=== PATIENT | female | born 1935 | race Caucasian/White ===

== ENCOUNTER → 2018-03-27 | Outpatient (CLI) | payer MEDICARE ==
[~2018-03-27] MED LIST: ALBIPROI; ALBU3IS; ALBU3IS INH; ALBU90OI; ALBU90OI INH; ALPR.25; ALPR.5 PO; AMOCLA875 PO; Amlodipine Bes2.5 MG PO; BUME1 PO; CEPH500; CHOLESTOFF; CITRACAL; ECOTRIN PO; ESTR1; FURO40; FURO40 PO; GABA100 PO; GABA300; HYDACE5 PO; HYDMOR2; IRBE150; IRBE150 PO; K-Dur20 MEQ PO; LANS15EC; LANS30EC PO; LOSA50 PO; MINO50; MONT10T; MULVITMINF PO; Mucinex600 MG PO; POTCHL20ER; POTCHL20ER PO; PRED5; PROACE100; Percocet 5-3251 EACH PO; QUIN325; RXPRED10; SPACE CHAMBER1 EACH MC; TRIAOI; VERA100; VIT C & E; Zovirax800 MG PO; [UNRECOGNIZED DRUG - OTHER]
== END | disposition home or self-care (01) ==
LOC: PLD 07:44 → LAB SHORT 07:44
DX: C44.41 Basal cell carcinoma of skin of scalp and neck (principal)
CPT/HCPCS: 88305

== ENCOUNTER → 2019-09-24 | Outpatient (CLI) | payer OTHER | END | disposition home or self-care (01) | LOC: PLD 08:16 → LAB SHORT 08:16 | DX: L82.1 Other seborrheic keratosis (principal) | CPT/HCPCS: 88305 ==

== ENCOUNTER → 2020-03-26 | Outpatient (CLI) | payer OTHER | END | disposition home or self-care (01) | LOC: LAB SHORT 14:20 → LAB 14:20 | DX: M54.5 Low back pain (principal); R30.0 Dysuria | CPT/HCPCS: 87086 ==

== ENCOUNTER → 2021-03-07 | Outpatient (CLI) | payer OTHER ==
[~2021-03-07] MED LIST changes: +ALPRAZOLAM0.5 M1 PO; +ASCO500 PO; +BISA5EC PO; +GUAI600T33 PO; +K-Dur 20 meq T20 MEQ PO; +OXYC5 PO; +TOCO1000 PO; +VITAMIN D5000 UNIT PO
== END | disposition home or self-care (01) ==
LOC: LAB SHORT 10:45 → LAB 10:45
DX: R30.0 Dysuria (principal)
CPT/HCPCS: 87086

== ENCOUNTER 2021-03-15 13:32 | Emergency (ER) | payer OTHER ==
[~2021-03-15] VITALS: Ht 162.6 cm; Wt 72.1 kg
[~2021-03-15 13:32] MED LIST changes: -ALPRAZOLAM0.5 M1 PO; -ASCO500 PO; -BISA5EC PO; -GUAI600T33 PO; -K-Dur 20 meq T20 MEQ PO; -OXYC5 PO; -TOCO1000 PO; -VITAMIN D5000 UNIT PO
[2021-03-15 14:13] LABS: BASOPHILS ABSOLUTE AUTO 0.06 K/mm3 (0.00-0.23); BASOPHILS PERCENT AUTO 1 % (0-2); EOSINOPHILS ABSOLUTE AUTO 0.07 K/mm3 (0.00-0.68); EOSINOPHILS PERCENT AUTO 1 % (0-6); Hematocrit 41.8 % (33.0-51.0); Hemoglobin 13.7 g/dL (11.5-16.0); IMMATURE GRAN ABSOLUTE AUTO 0.02 K/mm3 (0.00-0.10); IMMATURE GRAN PERCENT AUTO 0 % (0-1); LYMPHOCYTES ABSOLUTE AUTO 1.06 K/mm3 (0.84-5.20); LYMPHOCYTES PERCENT AUTO 13 % (21-46); MONOCYTES ABSOLUTE AUTO 0.77 K/mm3 (0.16-1.47); MONOCYTES PERCENT AUTO 10 % (4-13); Mean Corpuscular HGB 29.5 pg (26.0-34.0); Mean Corpuscular HGB Conc 32.8 g/dL (31.5-36.5); Mean Corpuscular Volume 90 fL (80-100); Mean Platelet Volume 8.8 fL (9.1-12.4); NEUTROPHILS ABSOLUTE AUTO 6.04 K/mm3 (1.96-9.15); NEUTROPHILS PERCENT AUTO 75 % (41-73); Platelet Count 193 K/mm3 (150-400); RDW Coefficient Variation 12.8 % (11.7-14.2); Red Blood Cell Count 4.64 M/mm3 (3.80-5.20); White Blood Cell Count 8.02 K/mm3 (4.00-11.30)
[2021-03-15 14:31] LABS: Alanine Aminotransfer (ALT/SGP 19 U/L (12-78); Albumin, Blood 3.5 g/dL (3.4-5.0); Albumin/Globulin Ratio 0.8 (0.8-1.8); Alk Phos 103 U/L (50-136); Anion Gap 4 mmol/L (6-16); Aspartate Aminotrans (AST/SGOT 21 U/L (12-37); Bilirubin, Total 0.4 mg/dL (0.1-1.0); Blood Urea Nitrogen 15 mg/dL (8-24); Bun/Creatinine Ratio 12.8 (12.0-20.0); CO2, Blood 33 mmol/L (21-32); Calcium, Blood 8.9 mg/dL (8.5-10.1); Chloride, Blood 100 mmol/L (98-108); Creatinine, Blood 1.17 mg/dL (0.40-1.00); Globulin, Blood 4.3 g/dL (2.2-4.0); Glomerular Filtration Rate 47 (60-); Glucose, Blood 102 mg/dL (70-99); Potassium, Blood 3.4 mmol/L (3.5-5.5); Sodium, Blood 137 mmol/L (136-145); Total Protein, Blood 7.8 g/dL (6.4-8.2); Troponin I <0.015 ng/mL (0.000-0.040)
[2021-03-15] MEDS ORDERED: K-Dur 20 meq T20 MEQ PO (14:34)
[2021-03-15] MEDS ORDERED: OXYC5 PO (14:34)
[2021-03-15] MEDS ORDERED: ALPRAZOLAM0.5 M1 PO (14:36)
== END 2021-03-15 15:34 | disposition home or self-care (01) ==
LOC: ER 13:32
PROVIDERS: Emergency Medicine
DX: M54.5 Low back pain (principal); R06.00 Dyspnea, unspecified; J44.9 Chronic obstructive pulmonary disease, unspecified; Z91.041 Radiographic dye allergy status; Z88.1 Allergy status to other antibiotic agents; Z88.8 Allergy status to other drugs, medicaments and biological substances; Z79.899 Other long term (current) drug therapy
CPT/HCPCS: 36415; 71045; 80053; 83880; 84484; 85025; 93005; 93010; 99285-25

== ENCOUNTER 2021-03-21 08:28 | Inpatient (IN) | payer OTHER, MEDICARE ==
[~2021-03-21] VITALS: Ht 162.6 cm; Wt 72.2 kg
[~2021-03-21 08:28] MED LIST changes: +ALPRAZOLAM0.5 M1 PO; +K-Dur 20 meq T20 MEQ PO; +OXYC5 PO
[2021-03-21 08:59] LABS: BASOPHILS ABSOLUTE AUTO 0.04 K/mm3 (0.00-0.23); BASOPHILS PERCENT AUTO 0 % (0-2); EOSINOPHILS ABSOLUTE AUTO 0.02 K/mm3 (0.00-0.68); EOSINOPHILS PERCENT AUTO 0 % (0-6); IMMATURE GRAN ABSOLUTE AUTO 0.04 K/mm3 (0.00-0.10); IMMATURE GRAN PERCENT AUTO 0 % (0-1); LYMPHOCYTES ABSOLUTE AUTO 1.39 K/mm3 (0.84-5.20); LYMPHOCYTES PERCENT AUTO 11 % (21-46); MONOCYTES ABSOLUTE AUTO 0.88 K/mm3 (0.16-1.47); MONOCYTES PERCENT AUTO 7 % (4-13); Mean Corpuscular HGB 29.5 pg (26.0-34.0); Mean Corpuscular HGB Conc 32.6 g/dL (31.5-36.5); Mean Corpuscular Volume 90 fL (80-100); Mean Platelet Volume 9.4 fL (9.1-12.4); NEUTROPHILS ABSOLUTE AUTO 10.45 K/mm3 (1.96-9.15); NEUTROPHILS PERCENT AUTO 82 % (41-73); Platelet Count 207 K/mm3 (150-400); RDW Coefficient Variation 12.6 % (11.7-14.2); RDW Standard Deviation 41.6 fL (35.1-46.3); Red Blood Cell Count 5.09 M/mm3 (3.80-5.20); White Blood Cell Count 12.82 K/mm3 (4.00-11.30)
[2021-03-21 09:12] LABS: Alanine Aminotransfer (ALT/SGP 20 U/L (12-78); Albumin, Blood 3.7 g/dL (3.4-5.0); Albumin/Globulin Ratio 0.9 (0.8-1.8); Alk Phos 94 U/L (50-136); Anion Gap 4 mmol/L (6-16); Aspartate Aminotrans (AST/SGOT 20 U/L (12-37); Bilirubin, Total 0.5 mg/dL (0.1-1.0); Blood Urea Nitrogen 26 mg/dL (8-24); Bun/Creatinine Ratio 21.1 (12.0-20.0); CO2, Blood 36 mmol/L (21-32); Calcium, Blood 9.2 mg/dL (8.5-10.1); Chloride, Blood 96 mmol/L (98-108); Creatinine, Blood 1.23 mg/dL (0.40-1.00); Globulin, Blood 4.2 g/dL (2.2-4.0); Glomerular Filtration Rate 44 (60-); Glucose, Blood 108 mg/dL (70-99); Potassium, Blood 3.6 mmol/L (3.5-5.5); Sodium, Blood 136 mmol/L (136-145); Total Protein, Blood 7.9 g/dL (6.4-8.2); Troponin I <0.015 ng/mL (0.000-0.040)
[2021-03-21 11:51] LABS: SARS-Cov-2 (COVID-19) PCR, MMC NEGATIVE (NEGATIVE)
[2021-03-21 12:22] LABS: International Normalized Ratio 1.27; Prothrombin Time Results 13.5 Sec (9.7-11.5)
[2021-03-21] MEDS ORDERED: FURO40 PO (12:27)
[2021-03-21] MEDS ORDERED: ASCO500 PO (12:28)
[2021-03-21] MEDS ORDERED: TOCO1000 PO (12:28)
[2021-03-21] MEDS ORDERED: VITAMIN D5000 UNIT PO (12:31)
[2021-03-21] MEDS ORDERED: BISA5EC PO (12:32)
[2021-03-21] MEDS ORDERED: GUAI600T33 PO (12:33)
--- NOTE | 2021-03-21 16:10 | NUR ---
PT OFF UNIT VIA W/C FOR U/S GUIDED THORACENTESIS.
--- NOTE | 2021-03-21 17:21 | NUR ---
PATIENT RETURNED FROM PROCEDURE. CXR COMPLETED.
--- NOTE | 2021-03-21 17:22 | NUR ---
SHIFT SUMMARY: ASSUMED CARE OF PT UPON HER ARRIVAL FROM ED AT 1212. A&O X 4, PLEASANT. ON TELEMETRY, SR 90'S, DENIED CHEST DISCOMFORT. O2 @ 3 L/MIN NC, USES 2 L/MIN AT BASELINE. NOTED SIGNIFICANT DIFFERENCE IN BP FROM RA (160-180 SYSTOLIC) OVER LA (102 SYSTOLIC), CYANOTIC FINGERTIPS ON L HAND WITH FAINT PULSE; PT STATED SHE HAS " A BLOCKAGE" IN L UPPER ARM THAT "THE DOCTOR'S KNOW ABOUT." HAD U/S GUIDED THORACENTESIS, TOLERATED WELL, BAND AID ON L POSTERIOR CHEST, NO BLEEDING NOTED. IS HOPING TO BE DISCHARGED SOON.
[2021-03-21 17:24] LABS: Body Fluid WBC Count 870 /mm3 (0-999)
[2021-03-21 17:30] LABS: Albumin, Body Fluid 2.4 g/dL
[2021-03-21 17:37] LABS: Lactate Dehydrogenase, Body Fl 271 U/L
[2021-03-21 17:46] LABS: Automated BF RBC Count 0.002 M/mm3 (0-0); RBC Count, Body Fluid 2000 /mm3 (0-0)
[2021-03-21 17:56] LABS: Protein, Body Fluid 4.3 g/dL
[2021-03-21 17:57] LABS: Glucose, Body Fluid 114 mg/dL
[2021-03-21 19:01] LABS: Color, Body Fluid Yellow (None-Yellow); Total Cell Count, Body Fluid 100
[2021-03-21 19:02] LABS: Appearance, Body Fluid Cloudy (Clear)
--- NOTE | 2021-03-21 23:12 | NUR ---
CARDIAC: BP'S ARE ELEVATED 170/81 AT START OF SHIFT. PATIENT HAD POOR EFFECT FROM HYDRALAZINE GIVEN AT 1745. NORVASC 2.5MG, HOME MED, WAS GIVEN WITH POOR EFFECT, RECHECK WAS 188/83. MITALI MILES MANAGER SURGERY IS NOTIFIED OF ELEVATED BP WITH COMPLAINTS OF A HEAD ACHE. ORDER TO CHANGE HYDRALAZINE TO Q 4H PRN AND GIVEN FIRST DOSE NOW WAS OBTAINED. HYRDALAZINE AND TYLENOL WERE GIVEN WITH GOOD EFFECT. HEAD ACHE RESOLVED AND BP RECHECK WAS 148/63.
[2021-03-22 04:41] LABS: BASOPHILS ABSOLUTE AUTO 0.04 K/mm3 (0.00-0.23); BASOPHILS PERCENT AUTO 0 % (0-2); EOSINOPHILS ABSOLUTE AUTO 0.04 K/mm3 (0.00-0.68); EOSINOPHILS PERCENT AUTO 0 % (0-6); Hematocrit 44.1 % (33.0-51.0); Hemoglobin 14.5 g/dL (11.5-16.0); IMMATURE GRAN ABSOLUTE AUTO 0.04 K/mm3 (0.00-0.10); IMMATURE GRAN PERCENT AUTO 0 % (0-1); LYMPHOCYTES ABSOLUTE AUTO 1.99 K/mm3 (0.84-5.20); LYMPHOCYTES PERCENT AUTO 20 % (21-46); MONOCYTES ABSOLUTE AUTO 1.58 K/mm3 (0.16-1.47); MONOCYTES PERCENT AUTO 16 % (4-13); Mean Corpuscular HGB 29.6 pg (26.0-34.0); Mean Corpuscular HGB Conc 32.9 g/dL (31.5-36.5); Mean Corpuscular Volume 90 fL (80-100); Mean Platelet Volume 9.4 fL (9.1-12.4); NEUTROPHILS PERCENT AUTO 64 % (41-73); Platelet Count 198 K/mm3 (150-400); RDW Coefficient Variation 12.9 % (11.7-14.2); RDW Standard Deviation 42.7 fL (35.1-46.3); White Blood Cell Count 10.19 K/mm3 (4.00-11.30)
--- NOTE | 2021-03-22 04:46 | NUR ---
SHIFT SUMMARY: PATIENT IS A&OX4, UP TO [facility] [place] WITH STEADY GAIT. BP IS NOW WNL AFTER HOME MEDICATION, NORVASC AND HYDRALAZINE IV PRN X1 WERE GIVEN.
[2021-03-22 05:08] LABS: Bun/Creatinine Ratio 21.1 (12.0-20.0); Calcium, Blood 8.8 mg/dL (8.5-10.1); Creatinine, Blood 1.14 mg/dL (0.40-1.00); Potassium, Blood 3.4 mmol/L (3.5-5.5)
--- NOTE | 2021-03-22 13:33 | NUR ---
CARE ASSUMED OF PT AT 1250. PT ALERT AND ORIENTED. CALL LIGHT WITHIN REACH. WILL CONTINUE TO MONITOR.
--- NOTE | 2021-03-22 16:54 | NUR ---
Pt had bp of 189/99 R arm, sitting at 1537 and PRN IVP hydralazing administered by RN. BP rechecked at 1602 and 175/76 R arm, sitting. Pt c/o 4/10 OLSEN at this time and PRN APAP 650 administered PO, taken whole w/ water. APAP was effective to reduce headache pain to 2/10 and BP was checked again, with a measurement of 144/57, laying R arm. Pt appeared to be resting comfortably and was a bit drowsy, but still responding appropriately to questions. Sa02 93% on 2.5L 02 via NC at this time, the same amount of 02 used at home. Pt reports feeling comfortable and respirations are unlabored and even. Call light observed within reach. Pt requested door to be closed due to "a cold draft" which, along with a warm blanket reportedly increased her comfort.
--- NOTE | 2021-03-22 18:06 | NUR ---
SHIFT SUMMARY: Pt A/O x 4, moved to room 302 around 1250 and no significant issues with room transfer, pt reported feeling a bit cold and accepted a warm blanket, requesting door to be shut d/t "draft" which improved comfort per her report. PRN IVP hydralazine given x1 for elevated BP and PRN PO APAP for OLSEN; hydralazine effective to significantly reduce BP, and APAP effective to reduce OLSEN pain. Pt using BSC for toileting and gait is steady. Denies significant SOB with transferring from bed to BSC/Shower chair, she received a shower this shift and bedding was changed.
[2021-03-23 05:11] LABS: Albumin, Blood 3.1 g/dL (3.4-5.0); Anion Gap 3 mmol/L (6-16); Blood Urea Nitrogen 22 mg/dL (8-24); Bun/Creatinine Ratio 20.6 (12.0-20.0); CO2, Blood 35 mmol/L (21-32); Calcium, Blood 8.7 mg/dL (8.5-10.1); Chloride, Blood 98 mmol/L (98-108); Creatinine, Blood 1.07 mg/dL (0.40-1.00); Glomerular Filtration Rate 52 (60-); Glucose, Blood 88 mg/dL (70-99); Phosphorus, Blood 3.4 mg/dL (2.5-4.9); Potassium, Blood 3.6 mmol/L (3.5-5.5); Sodium, Blood 136 mmol/L (136-145)
--- NOTE | 2021-03-23 06:20 | NUR ---
SUMMARY PT O2 WAS INCREASED THIS AM DUE TO INCREASED SOB. O2 WAS 2.5 AND CHANGED TO 4 LPM. PT REPORTS DECREASE IN SOB WITH SITTING UP MORE. PT DENIES CX PAIN. PT SLEPT OFF AND ON. PT CURRENTLY AWAKE IN NO DISTRESS. CALL LIGHT IN REACH.
--- NOTE | 2021-03-23 07:15 | NUR ---
PT RESP INCREASED. WHILE RECEIVING REPORT, RN STATES PT INCREASED LABORED BREATHING OVER LAST HOUR. HAS TURNED O2 UP FROM 2.5 L TO 4L. PT REPORT FEELS MORE SOB, IS SITTING UP SOME IN BED. CHECKED LUNGS. CLEAR T/O WITH LIGHT DIMNESS IN UPPER RT. PT STATES MAYBE NEEDS THORENCENTISIS AGAIN. PT IS SITTING SOME CRUNCHED UP. DID REPOSITION PT. STATES SOME BETTER. O2 AT 96% 4L
--- NOTE | 2021-03-23 07:30 | NUR ---
PT MORE RELAXED. O2 96% 4L. STATES ALTHOUGH WAS HARDER AT FIRST, IS BETTER SITTING UP CORRECTLY. TURNED O2 DOWN TO 2.5 L PT SATTING AT 95% NO C/O SOB. DISCUSSED NO B/M IN OVER A WEEK. WILL SPEAK TO DR FOR MORE MEDS. TOOK BROWN COW AND SOME MEDS YEST. PT QUITE CONCERNED ABOUT CANCER. WILL SPEAK TO DR IN THIS REGARD.
--- NOTE | 2021-03-23 08:00 | NUR ---
PT QUITE PLEASANT COOP A/O. STATES IS SOME UPSET OVER DR DISCUSSING CANCER WITH HER YESTERDAY, WE DISCUSSED HER WISHES THAT IF DOES HAVE CANCER, EXPECTS WILL NOT HAVE TREATMENT. DISCUSSED CODE STATUS, WILL CONTINUE. AND DISCUSS WITH DR. TALKED ABOUT NO BM ABOUT A WEEK. SOON SHE SLUMPS IN BED, HAS HARD TIME BREATHING. WILL ASK DR FOR ADDL MEDS. H/R REG, NO MURMER NOTED. PER TELE NSR WITH BBB AND RATE 95. LUNGS CLEAR T/O WITH LITE DIM UPPER RIGHT. BT HYPO. LAST BM ABOUT A WEEK PER PT. VOIDS 1 ASST BSC. BED IN LOW POSITION, CALL LITE IN REACH, CALLS APPROP
--- NOTE | 2021-03-23 10:55 | NUR ---
PT STATES SOME SOB, REPOSITIONED, STATES FEELS SOME BETTER. O2 AT 93% 2.5L
--- NOTE | 2021-03-23 15:58 | NUR ---
PT STATES NO LAST FEW DAYS MAYBE A WEEK. SPOKE TO DR MONTGOMERY. ORDERS FOR MIRALAX AND DOCUSATE. DISCUSSED HER SOB EPISODE THIS AM. NO NEW ORDERS ON THIS.
--- NOTE | 2021-03-23 18:35 | NUR ---
PT QUITE PLEASANT TODAY. DR ROBERTS TURNED O2 DOWN TO 1 L TODAY. PT TEVIN WELL. MEDS ORDERED FOR BOWEL START TONITE. NO NEW CONCERNS NOTED. DR MONTGOMERY IN TO SEE TODAY. BED IN LOW POSITION, CALL LITE IN REACH, CALLS APPROP
--- NOTE | 2021-03-23 22:00 | NUR ---
ASSUMED CARE. AOX3, PLEASANT AND COOPERATIVE. LUNG SOUNDS DIMINISHED IN BASES. NO COUGH BUT DOES GET SOB OFF AND ON. SATS HOLDING IN THE 90'S ON 1L. DID INCREASE TO 2.5L FOR BEDTIME. THIS IS HER BASE AT HOME. NO COUGH STATES OCCATIONALLY. HAD 1 LITER OF FLUID REMOVED OFF HER LOWER LEFT LOBE. SITE HAS BANDAID ON IT. DENIES ANY PAIN OR DISCOMFORT. ABLE TO GET UP TO BSC INDEPENDENTLY. MEDS GIVEN. DENIES ANY NEEDS. WILL CONTINUE TO MONITOR.
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
[2021-03-24 08:24] LABS: BASOPHILS ABSOLUTE AUTO 0.08 K/mm3 (0.00-0.23); BASOPHILS PERCENT AUTO 1 % (0-2); EOSINOPHILS ABSOLUTE AUTO 0.25 K/mm3 (0.00-0.68); EOSINOPHILS PERCENT AUTO 2 % (0-6); Hematocrit 46.3 % (33.0-51.0); IMMATURE GRAN ABSOLUTE AUTO 0.05 K/mm3 (0.00-0.10); IMMATURE GRAN PERCENT AUTO 1 % (0-1); LYMPHOCYTES ABSOLUTE AUTO 1.33 K/mm3 (0.84-5.20); LYMPHOCYTES PERCENT AUTO 13 % (21-46); MONOCYTES ABSOLUTE AUTO 1.18 K/mm3 (0.16-1.47); MONOCYTES PERCENT AUTO 11 % (4-13); Mean Corpuscular HGB 29.2 pg (26.0-34.0); Mean Corpuscular HGB Conc 32.4 g/dL (31.5-36.5); Mean Corpuscular Volume 90 fL (80-100); Mean Platelet Volume 9.4 fL (9.1-12.4); NEUTROPHILS ABSOLUTE AUTO 7.69 K/mm3 (1.96-9.15); NEUTROPHILS PERCENT AUTO 73 % (41-73); Platelet Count 247 K/mm3 (150-400); RDW Coefficient Variation 12.9 % (11.7-14.2); RDW Standard Deviation 42.5 fL (35.1-46.3); Red Blood Cell Count 5.13 M/mm3 (3.80-5.20); White Blood Cell Count 10.58 K/mm3 (4.00-11.30)
[2021-03-24 08:45] LABS: Albumin, Blood 3.1 g/dL (3.4-5.0); Albumin/Globulin Ratio 0.7 (0.8-1.8); Bilirubin, Total 0.5 mg/dL (0.1-1.0); Bun/Creatinine Ratio 20.4 (12.0-20.0); Creatinine, Blood 1.03 mg/dL (0.40-1.00); Globulin, Blood 4.2 g/dL (2.2-4.0); Potassium, Blood 3.7 mmol/L (3.5-5.5); Total Protein, Blood 7.3 g/dL (6.4-8.2)
--- NOTE | 2021-03-24 18:17 | NUR ---
SHIFT SUMMARY PT ALERT ORIENTED X4; PT THIS AM C/O OF NOT HAVING BM FOR 7 DAYS. ENEMA WAS GIVEN AND FINALLY PT HAD A BM AND FELT BETTER; PT WILL HAVE THORACENTESIS TOMORROW; SO HOLD OFF ALL BLOOD THINNERS. NO OTHER C/O OF PAIN OR DISCOMFORT. BP ELAVATED AND HYDRALAZINE PRN PER EMAR. BED IS IN THE LOWEST POSITION AND CALL LIGHT WITHIN REACH
--- NOTE | 2021-03-24 18:35 | NUR ---
Ms. Ugarte was talkative and appreciaitive of theraputic listening and gentle genetic counsellor. She admits she is fearful that her cancer has returned, but insists she is trying not to worry until all tests complete. If it is cancer, she tells me "I will never agree to any kind of chemo. I watched my sister a miserable from chemo." We had an easy rapport and she was considerably relaxed after visit and prayer. I will remain available.
--- NOTE | 2021-03-24 20:41 | NUR ---
ASSUMED CARE. AOX3, STATES SHE FEELS ABOUT THE SAME.NO CHANGE IN SOB OR HER BREATHING. HAS BEEN ON 2 LITERS MOST THE DAY, STATES SHE FEELS LIKE SHE IS NOT GETTING AIR IF ITS LOWER. LUNG SOUNDS ARE CLEAR, DIMINISHED IN BASES. OCCATIONAL COUGH, UNABLE TO TAKE GOOD DEEP BREATHS. TELE REPORTS SINUS WITH INVERTED T WAVES RUNNING IN THE 80'S. WITH HELD HEPARIN FOR THOROCENTESIS TOMORROW. GAVE XANAX FOR ANXIETY. BP ELEVATED AT 162/69. POSSIBLY DUE TO ANXIOUSNESS. WILL MONITOR. CALL LIGHT IN REACH.
--- NOTE | 2021-03-24 22:00 | NUR ---
PT SLEEPING, NO SIGN OF DISTRESS. CALL LIGHT IS IN REACH.
--- NOTE | 2021-03-25 01:00 | NUR ---
PATIENT SLEEPING SOUNDLY, NO CHANGES, NO CONCERNS TO NOTE. CALL LIGHT IN REACH.
--- NOTE | 2021-03-25 05:36 | NUR ---
SHIFT SUMMARY: AOX3, LUNG SOUNDS DIMINISHED BUT CLAER. SATS ABOVE 90% ON 2 LITERS, STATES SHE FEELS BETTER ON 2 LITERS THEN 1 WHEN IT COMES TO BREATHING. 2.5L AT NIGHT WHEN SLEEPING. NO PAIN THIS SHIFT. VS ALOT BETTER WITH BP IN THE 150-160'S. AFEBRILE. HELP HEPARIN FOR PROCEDURE TODAY. SHE IS HOPEING TO GO HOME AFTER THE PROCEDURE. TELE REPORTS SINUS WTIH INVERTED T WAYS. NO CHEST PAIN. SLEPT REALLY WELL T/O THE NIGHT. CALL LIGHT HAS REMAINED IN REACH. WILL CONTINUE TO MONITOR.
[2021-03-25 12:38] LABS: Bun/Creatinine Ratio 19.5 (12.0-20.0); Calcium, Blood 9.3 mg/dL (8.5-10.1); Creatinine, Blood 1.13 mg/dL (0.40-1.00); Potassium, Blood 4.4 mmol/L (3.5-5.5)
--- NOTE | 2021-03-25 15:30 | NUR ---
PT DISCHARGED TO HOME VIA WC; PT FAMILY MEMBER BROUGHT THE PT HOME O2; PT HAD THORA TODAY AND TOOK OUT 1200 FLUID. SITE INTACT AND NO SIGNS OF BLEEDING. PT GIVEN PACKET OF EDUCATION ABOUT NEW MEDICATION WHICH WAS SENT BY THE PROVIDER TO PT PHARMACY. PT ALSO EDUCATED ABOUT AFTERCARE OF THE SITE. PT EDUCATED AND AWARE ABOUT NEW CHANGES OF MEDS. PT WILL FU TO PCP NEEDED. PT SATS ABOVE 90S NO APPARENT DISTRESS. PT VALUABLE WITH PT. PT IV DC'D. BED IS IN THE LOWEST POSITION AND CALL LIGHT WITHIN REACH/
--- NOTE | 2021-03-25 17:31 | NUR ---
Supportive visit to Ernestina this morning. She was pleased to be discharged home today and asked for prayer. She told me about her rapid weight loss in the past few onths and expressed some concerns about not finding food appealing anymore. She remains hopeful that "whatever this is" is not a return of her cancer. I provided prayer and curriculum counselor to good effect.
== END 2021-03-25 15:23 | disposition home or self-care (01) | DRG 180 ==
LOC: ER 08:28 → MEDS 11:21
PROVIDERS: Emergency Medicine; Family Medicine; ADMIT Family Medicine
PROC: 0W9B3ZZ Drainage of Left Pleural Cavity, Percutaneous Approach (ICD-10-PCS; principal; 2021-03-21)
DX: C34.92 Malignant neoplasm of unspecified part of left bronchus or lung (principal); J96.21 Acute and chronic respiratory failure with hypoxia; J91.0 Malignant pleural effusion; E44.0 Moderate protein-calorie malnutrition; J44.9 Chronic obstructive pulmonary disease, unspecified; E78.00 Pure hypercholesterolemia, unspecified; G62.9 Polyneuropathy, unspecified; Z20.822 Contact with and (suspected) exposure to COVID-19; D72.829 Elevated white blood cell count, unspecified; T38.0X5A Adverse effect of glucocorticoids and synthetic analogues, initial encounter; G47.33 Obstructive sleep apnea (adult) (pediatric); E87.6 Hypokalemia; I12.9 Hypertensive chronic kidney disease with stage 1 through stage 4 chronic kidney disease, or unspecified chronic kidney disease; I77.1 Stricture of artery; F41.9 Anxiety disorder, unspecified; N18.30 Chronic kidney disease, stage 3 unspecified; K59.00 Constipation, unspecified; Z88.1 Allergy status to other antibiotic agents; Z91.041 Radiographic dye allergy status; Z88.8 Allergy status to other drugs, medicaments and biological substances; Z85.118 Personal history of other malignant neoplasm of bronchus and lung; Z86.718 Personal history of other venous thrombosis and embolism; Z90.2 Acquired absence of lung [part of]; Z90.49 Acquired absence of other specified parts of digestive tract; Z90.710 Acquired absence of both cervix and uterus; Z98.890 Other specified postprocedural states; Z87.891 Personal history of nicotine dependence; Z99.81 Dependence on supplemental oxygen; Z79.51 Long term (current) use of inhaled steroids; Z90.721 Acquired absence of ovaries, unilateral; Z86.711 Personal history of pulmonary embolism; Z68.27 Body mass index [BMI] 27.0-27.9, adult
CPT/HCPCS: 32555; 36415; 71045; 71250; 74176; 80048; 80053; 80069; 82042; 82945; 83615; 83880; 84145; 84157; 84484; 85025; 85379; 85610; 85730; 87070; 87205; 88108; 88305; 88341; 88342; 89051; 93005; 93010; 94640; 94667; 94760; 99285-25; A9270; J0360; J1644; U0004

== ENCOUNTER 2021-04-03 03:02 | Inpatient (IN) | payer MEDICARE, OTHER ==
[~2021-04-03] VITALS: Ht 162.6 cm; Wt 69.7 kg
[~2021-04-03 03:02] MED LIST changes: +ASCO500 PO; +BISA5EC PO; +GUAI600T33 PO; +TOCO1000 PO; +VITAMIN D5000 UNIT PO
[2021-04-03 03:22] LABS: BASOPHILS ABSOLUTE AUTO 0.09 K/mm3 (0.00-0.23); BASOPHILS PERCENT AUTO 1 % (0-2); EOSINOPHILS ABSOLUTE AUTO 0.17 K/mm3 (0.00-0.68); EOSINOPHILS PERCENT AUTO 2 % (0-6); Hematocrit 44.4 % (33.0-51.0); Hemoglobin 14.1 g/dL (11.5-16.0); IMMATURE GRAN ABSOLUTE AUTO 0.05 K/mm3 (0.00-0.10); IMMATURE GRAN PERCENT AUTO 0 % (0-1); LYMPHOCYTES ABSOLUTE AUTO 1.63 K/mm3 (0.84-5.20); LYMPHOCYTES PERCENT AUTO 14 % (21-46); MONOCYTES ABSOLUTE AUTO 1.12 K/mm3 (0.16-1.47); MONOCYTES PERCENT AUTO 10 % (4-13); Mean Corpuscular HGB 29.8 pg (26.0-34.0); Mean Corpuscular HGB Conc 31.8 g/dL (31.5-36.5); Mean Corpuscular Volume 94 fL (80-100); Mean Platelet Volume 9.5 fL (9.1-12.4); NEUTROPHILS ABSOLUTE AUTO 8.25 K/mm3 (1.96-9.15); NEUTROPHILS PERCENT AUTO 73 % (41-73); Platelet Count 217 K/mm3 (150-400); RDW Coefficient Variation 12.9 % (11.7-14.2); RDW Standard Deviation 44.4 fL (35.1-46.3); Red Blood Cell Count 4.73 M/mm3 (3.80-5.20); White Blood Cell Count 11.31 K/mm3 (4.00-11.30)
[2021-04-03 03:43] LABS: Alanine Aminotransfer (ALT/SGP 22 U/L (12-78); Albumin, Blood 2.6 g/dL (3.4-5.0); Albumin/Globulin Ratio 0.6 (0.8-1.8); Alk Phos 93 U/L (50-136); Anion Gap 3 mmol/L (6-16); Aspartate Aminotrans (AST/SGOT 37 U/L (12-37); Bilirubin, Total 0.4 mg/dL (0.1-1.0); Blood Urea Nitrogen 19 mg/dL (8-24); Bun/Creatinine Ratio 19.5 (12.0-20.0); CO2, Blood 31 mmol/L (21-32); Calcium, Blood 8.1 mg/dL (8.5-10.1); Chloride, Blood 103 mmol/L (98-108); Creatinine, Blood 0.98 mg/dL (0.40-1.00); Globulin, Blood 4.1 g/dL (2.2-4.0); Glomerular Filtration Rate 58 (60-); Glucose, Blood 104 mg/dL (70-99); Potassium, Blood 4.7 mmol/L (3.5-5.5); Sodium, Blood 137 mmol/L (136-145); Total Protein, Blood 6.7 g/dL (6.4-8.2); Troponin I <0.015 ng/mL (0.000-0.040)
--- NOTE | 2021-04-03 07:53 | NUR ---
Assumed Care Received report from Radha ED-RN. Patient arrived via [place] along with one personal belongings bag. On 5L O2, dyspnea with exertion. Self transferred from rney to bed. Standing weight obtained. A/O. Cooperative. Follows commands appropriately. Patient settled to room. FIORELLA.
--- NOTE | 2021-04-03 10:44 | NUR ---
NPO/COVID TEST RECEIVED V.O. FROM DR. GRIGSBY TO KEEP PATIENT NPO AND DO PREPROCEDURE COVID TEST. ORDERS UPDATED.
--- NOTE | 2021-04-03 11:52 | NUR ---
Patient is sitting up in bed and alert. Patient tells me about her appreciation for Prototype Sewer Debbie Becker and the puri she felt with her. Patietn shares about her cancer quinn and how overwhelming it is at times. I provide therapeutic listening and prayer. Patient voices appreciation for the visit.
[2021-04-03 12:06] LABS: SARS-Cov-2 (COVID-19) PCR, MMC NEGATIVE (NEGATIVE)
--- NOTE | 2021-04-03 12:41 | NUR ---
CYTOLOGY THORACENTESIS RECEIVED CALL FROM DR. CHRISTINA SHEPHERD OFFICE WITH T.O. FOR CYTOLOGY LAB TESTING ON TODAY'S THORACENTESIS. ORDER PLACED. DAY SURGERY RN CATRACHITA NOTIFIED OF DR. GUTIERREZ' ORDER. CATRACHITA WILL INFORM OR.
--- NOTE | 2021-04-03 13:11 | NUR ---
DNR BAND BAND PLACED TO R WRIST, VERIFIED WITH HARRIETT.
--- NOTE | 2021-04-03 17:38 | NUR ---
Shift Summary A/Ox3, pleasant and cooperative with care. Up with SBA to bedside commode. Initially, patient was on 5L at admit. After pleurix drain placed and fluids removed, oxygen needs are at baseline of 3L per NC. States breathing has improved. Alisia Epperson contacted to start process of HH/Hospice. Rasheeda Palliative RN discussed pleurix drain education with patient and daughter at bedside, additional equipments given for home use. Indwelling pleurix tube placed to L chest, no complaints of pain. Drain written orders in chart. Continuous biox in place. Patient refusing SCD's despite education. WCTM.
--- NOTE | 2021-04-04 04:00 | NUR ---
WINDER FIXER SUMMARY PT A/O X4 WITH FORGETFULNESS. PT TEND TO BE FORGETFUL WHENEVER PT AWAKE FROM SLEEP AND THINKS SHE'S AT HOME, BUT ABLE TO ADJUST BACK QUICK AND KNOWS SHE'S AT THE HOSPITAL. WEARS 3L O2 VIA NC SATTING IN THE LOW 90'S. DENIES PAIN, NAUSEA, SOB. CONTINUING POST OP VITALS. BED ALARM ON, CALL LIGHT WITHIN REACH. WILL CONTINUE TO MONITOR.
--- NOTE | 2021-04-04 09:36 | NUR ---
Late entry pt seen 6\11 for post pleurex placement and plan to dischareg. orders for pluerx drain perameters obtained from admitting physician. Met with pt and her daughter to do training for management unil home health arrives. pt is oreinted but forgetfull and anxious. Daughter at bedside is willing to learn drain system and dressing chages. [facility] [place] Assessment of pt they state she has been filling up quickly and has had to call EMs three times. DAughter expresses concer that she ill need to drain again tommorrow. Asfter review of pt symptoms and fraility and risk of manging a new drain discharge is precarious for pt safety. Notified physican with assessemtn and agreed to keep pt overnight and reevaluate. pt awaiting reivew of diagnositcis and dr reyes plan of care for her she understands it may only be palliative. Pt expresses a lot of stress over finances and medical bills and stressing her family. Pt joyce be betterserved for quality of what life she has left with hospice care. He daughter is needing support.
--- NOTE | 2021-04-04 17:05 | NUR ---
Shift Summary A/Ox3, pleasant. Patient recalls waking up in the middle of the night confused as to where she was and pulling off wires last night. Patient felt remorse and embarrassment. Not forgetful this shift. Up to bedside commode with SBA, calls appropriately for needs. Bed alarm on for safety. Desats to mid 80's on 3L O2 with activity, but rebounds quickly. Continuous biox on. Low grade fever max of 99.4 orally, no complaints of chills/cold. Temp resolved w/o intervention. Denies pain, nausea, vomiting, diarrhea. Worked with PT. Up in chair for dinner. No acute changes, WCTM.
--- NOTE | 2021-04-04 18:36 | NUR ---
a few visits to [facility] pt and review with nursing. no shorness of breath or s/s of needing drain. Will meet with family for plan of care and training. recieved call this am from admitting physician will monitor til hh can come out tp to frail and precarious. family getting home ready.
--- NOTE | 2021-04-04 18:38 | NUR ---
family sent with some training materials and we will practive before discharge.
--- NOTE | 2021-04-05 03:56 | NUR ---
HELP DESK COORDINATOR SUMMARY PT A/O X4 WITH FORGETFULNESS. DENIES PAIN, NAUSEA. SOB WITH EXERTION. CONTINUES TO BE ON 3L O2 SATTING IN THE LOW TO MID 90'S. NO ACUTE CHANGES, VSS. CALL LIGHT WITHIN REACH, BED ALARM ON. WILL CONTINUE TO MONITOR.
--- NOTE | 2021-04-05 16:23 | NUR ---
SHFIT SUMMARY PT A&Ox4; FORGETFUL AT TIMES; CALM AND COOPERATIVE WITH CARE. PT RESTING IN BED FORMAJORITY OF SHIFT. UP TO BCS WITH 1 PERSON ASSIST. PT REPORTS HEADACHE THIS AM, MECIDATED WITH TYLENOL WITH POSITIVE RESULTS. PT SOB WITH EXERTIONS, ON 3L O2 VIA NC, WHICH SHE WEAR AT HOME, BREATHIN EVEN AND UNLABORED. PLEUREX DRAIN NOTED TO LEFT SIDEM BRUISING NOTED SURROUNDING SITE. DR MONTGOMERY AT BEDSIDE THIS AM; ORDERS TO HOLD OFF DRAINING UNTIL 04/06/21 UNTIL THE DAUGHTER CAN BE AT BEDSIDE FOR INSTRUCTIONS, UNLESS THE PATIENT GOES INTO RESPIRATORY DISTRESS. PT DENIES NAUSE AND DIZZINESS T/O SHIFT. VSS. NO OTHER ACUTE CHANGES NOTED. WILL CONTINUE TO MONITOR UNITL REPORT GIVEN TO ONCOMING RN.
--- NOTE | 2021-04-05 17:21 | NUR ---
tp comfortable no dypnea noted pt states breathing is fine. plan is dc tomorrow. will drain pt and review plurex with daughter and update care mangers.
--- NOTE | 2021-04-05 23:55 | NUR ---
CONSTIPATION PT HASN'T HAD A BOWEL MOVENTS SINCE THE . PT DENIES ABD TENDERNESS, CRAMPING OR PAIN. PT STATES SHE HAS BEEN PASSING GAS. THIS RN OFFERED ENEMA. PT STATED SHE DIDN'T WANT TO TAKE IT TONIGHT AND WILL UNTIL TOMORROW. PT REFUSED TO HAVE PRUNE JUICE WELL. PT DID RECIEVE DULCOLAX IN THE DAY TIME.
--- NOTE | 2021-04-06 04:50 | NUR ---
MED SURG NURSE SUMMARY PT A/O X4 WITH FORGETFULNESS. SLEPT WELL TONIGHT. AMBULATES WITH SBA TO THE BSC. DENIES PAIN AND NAUSEA. CONTINUES TO BE ON 3L O2 VIA NC SATTING IN THE LOW TO MID 90'S. SOB WITH EXERTION. PLEASANT AND COOPERATIVE. PLUREX DRAIN DRESSING C.D.I. NO ACUTE CHANGES. CALL LIGHT WITHIN REACH, BED ALARM ON.
--- NOTE | 2021-04-06 15:30 | NUR ---
pt drained with good tolerace. lots of bruising to back but site is clean and intact. pt had dark old blood drainage 800 out with good tolerance. Taughter her daughter and she did drain with excellent steril technique. pt to go home with [facility]. Dr reyes will look at path report and see if he can offer and palliative treatment for patient for awhile longer. If he cant or she cant tolerate it she will transition to hospice. pt has good home support but is high risk for readmission.
--- NOTE | 2021-04-06 15:39 | NUR ---
DISCHARGE SUMMARY PT A&OX4, VSS, LEFT FLOOR VIA WC WITH PRESIDING JUDGE, TO GO HOME WITH DAUGHTER DARCY, WITH ALL PLEURX SUPPLIES AND DC PACKET. DC INSTRUCTIONS PROVIDED. PT AND DAUGHTER REP UNDERSTANDING THOSE INSTRUCTIONS INCLUDING FU WITH DR MONTGOMERY, DR GUTIERREZ, [facility]. TAHIR KHALIL RN MET WITH PT AND DAUGHTER TO REVIEW THE PLEURX. IV DC'D.
--- NOTE | 2021-04-06 17:12 | NUR ---
Spiritual care note: Mrs. Ugarte and I have an easy rapport from previous admissions. She is hoping for more quality time and states she does not want to "keep coming to hospital." However, she is not ready for hospice. She states her oncologist is "looking for something new to give me more quality time." We had a lengthy visit and she shared with me more of her life story. She responded well to encouragement, gentle employee counselor, and prayer. She was being d/c later today.
== END 2021-04-06 15:41 | disposition home or self-care (01) | DRG 189 ==
LOC: ER 03:02 → MEDS 03:03 → ENPENDDIS 04-06 12:24 → MEDS 04-06 15:41
PROVIDERS: Student in an Organized Health Care Education/Training Program; Surgery; ADMIT Family Medicine
PROC: 0W9B30Z Drainage of Left Pleural Cavity with Drainage Device, Percutaneous Approach (ICD-10-PCS; principal; 2021-04-03 13:15)
DX: J96.01 Acute respiratory failure with hypoxia (principal); J91.0 Malignant pleural effusion; G47.33 Obstructive sleep apnea (adult) (pediatric); Z20.822 Contact with and (suspected) exposure to COVID-19; J44.9 Chronic obstructive pulmonary disease, unspecified; I10 Essential (primary) hypertension; F41.9 Anxiety disorder, unspecified; Z87.01 Personal history of pneumonia (recurrent); Z85.118 Personal history of other malignant neoplasm of bronchus and lung; Z90.2 Acquired absence of lung [part of]
CPT/HCPCS: 71045; 71250; 80053; 81235; 84484; 85025; 88108; 88305; 88360; 88381; 93005; 93010; 94762; 96374; 97162; 99285-25; A9270; C1729; G0378; J0690; J1100; J1650; J2310; J2370; J2405; J2704; J3010; J7120; U0004